=== PATIENT | male | born 1960 | race Caucasian/White ===

== ENCOUNTER 2016-12-07 20:47 | Inpatient (IN) | payer BC ==
[~2016-12-07] VITALS: Ht 185.4 cm; Wt 99.7 kg
[2016-12-07 22:36] LABS: HEMATOCRIT ND % (38.0-50.0); IMM.PLATELET FRACTION ND (1-7); MCH ND PG (29.0-34.0); MCHC ND G/DL (30.0-36.0); MCV ND FL (86-99); MEAN PLAT.VOLUME ND uM^3 (9.0-12.4); PLATELET COUNT ND K/uL (156-360); RBC DIS.WIDTH-CV ND % (11.8-14.6); RBC DIS.WIDTH-SD ND % (39-53); RED BLOOD COUNT ND M/uL (4.00-5.50); WHITE BLOOD COUNT ND K/uL (4.1-10.2)
[2016-12-07 22:37] LABS: BASOPHIL COUNT ND K/uL (0-0.1); EOSINOPHIL (%) ND % (0-5); EOSINOPHIL COUNT ND K/uL (0-0.3); IMMATURE GRANULOCYTE (%) ND % (0.0-0.7); LYMPHOCYTE COUNT ND K/uL (1.0-2.8); MONOCYTE (%) ND % (3-12); MONOCYTE COUNT ND K/uL (0-0.8); NEUTROPHIL (%) ND % (45-76); NEUTROPHIL COUNT ND K/uL (1.8-6.4)
[2016-12-07 22:38] LABS: IMMATURE GRANULOCYTE COUNT ND K/uL; NRBC (%) ND /100 WBC (0-0)
[2016-12-07 22:40] LABS: INTER. NORMALIZED RATIO 1.4; PROTHROMBIN TIME 14.1 (9.2-11.2); PTT 23.2 (25-32)
[2016-12-07 22:44] LABS: CHLORIDE 101 mEq/L (99-109)
[2016-12-07 22:45] LABS: POTASSIUM 4.2 mEq/L (3.7-5.4); SODIUM 135 mEq/L (136-147)
[2016-12-07 22:48] LABS: ANION GAP 13 MEQ/L (2-14)
[2016-12-07 22:50] LABS: GFR ESTIMATE (CALCULATED) > 59 mL/min/
[2016-12-07 22:51] LABS: BASOPHIL COUNT 0.1 K/uL (0-0.1); EOSINOPHIL (%) 2.6 % (0-5); EOSINOPHIL COUNT 0.2 K/uL (0-0.3); HEMATOCRIT 40.1 % (38.0-50.0); IMMATURE GRANULOCYTE (%) 0.3 % (0.0-0.7); INSTRUMENT ABS NEUTROPHIL CT 3.5 K/uL; LYMPHOCYTE COUNT 2.2 K/uL (1.0-2.8); MCH 29.6 PG (29.0-34.0); MCHC 35.2 G/DL (30.0-36.0); MCV 84.2 FL (86-99); MEAN PLAT.VOLUME 11.2 uM^3 (9.0-12.4); MONOCYTE (%) 9.3 % (3-12); MONOCYTE COUNT 0.6 K/uL (0-0.8); NEUTROPHIL (%) 53.6 % (45-76); NEUTROPHIL COUNT 3.5 K/uL (1.8-6.4); PLATELET COUNT 175 K/uL (156-360); RBC DIS.WIDTH-CV 12.8 % (11.8-14.6); RBC DIS.WIDTH-SD 39.6 % (39-53); RED BLOOD COUNT 4.76 M/uL (4.00-5.50); WHITE BLOOD COUNT 6.5 K/uL (4.1-10.2)
[2016-12-07 22:51] LABS: UREA NITROGEN (BUN) 21 mg/dL (9-23)
[2016-12-07 22:55] LABS: TROP-I INTERPRETATION NEGATIVE; TROPONIN-I < 0.01 ng/mL (0.0-0.30)
[2016-12-07 23:14] LABS: GLUCOSE 420 mg/dL (70-99)
[2016-12-07] MEDS ORDERED: TOUJEO SOL300 UNIT/1 SC (23:39)
[2016-12-07] MEDS ORDERED: METFORMIN HCL500 M4 PO (23:39)
[2016-12-07] MEDS ORDERED: METFORMIN HCL1000 M3 PO (23:39)
[2016-12-07] MEDS ORDERED: PRINZIDE 20-121 EACH PO (23:40)
[2016-12-07] MEDS ORDERED: TRICOR48 MG PO (23:41)
[2016-12-07] MEDS ORDERED: LIVALO2 MG PO (23:41)
[2016-12-08 00:05] LABS: HDL CHOLESTEROL 30 MG/DL (Desirable>=40); NON-HDL CHOLESTEROL 175 mg/dL (Desirable<160); TOTAL CHOLESTEROL 205 mg/dL (Desirable<200); TRIGLYCERIDES 465 MG/DL (Normal: <150)
[2016-12-08 01:52] LABS: POINT-OF-CARE METER ID UU13113702
[2016-12-08 02:38] LABS: POINT-OF-CARE METER ID UU13113702
[2016-12-08 07:36] LABS: Estimated Average Glucose 269 mg/dL (70-123)
[2016-12-08 08:32] LABS: HEMATOCRIT 40.7 % (38.0-50.0); MCH 29.3 PG (29.0-34.0); MCHC 34.6 G/DL (30.0-36.0); MCV 84.6 FL (86-99); PLATELET COUNT 156 K/uL (156-360); RBC DIS.WIDTH-CV 13.1 % (11.8-14.6); RBC DIS.WIDTH-SD 40.3 % (39-53); RED BLOOD COUNT 4.81 M/uL (4.00-5.50); WHITE BLOOD COUNT 6.4 K/uL (4.1-10.2)
[2016-12-08 09:18] LABS: ALKALINE PHOSPHATASE 57 IU/L (3-129); ANION GAP 10 MEQ/L (2-14); CHLORIDE 105 MEQ/L (99-109); GFR ESTIMATE (CALCULATED) > 59 mL/min/; GLUCOSE 226 mg/dL (70-99); POTASSIUM 3.5 MEQ/L (3.7-5.4); SAMPLE HEMOLYSIS CHECK 0; SAMPLE ICTERIC CHECK 0; SAMPLE LIPEMIA CHECK 0; SODIUM 138 MEQ/L (136-147); TOTAL BILIRUBIN 1.2 MG/DL (0.0-1.0); UREA NITROGEN (BUN) 15 mg/dL (9-23)
[2016-12-08 11:01] VITALS: BP 127/72
[2016-12-08 14:50] LABS: AMPHETAMINES QUANT VALUE 0 NG/ML; BARBITUATES QUANT VALUE 0 NG/ML; BENZODIAZEPINES QUANT VALUE 0 NG/ML; BENZODIAZEPINES, URINE SCREEN Negative (200 ng/mL); MARIJUANA QUANT VALUE 0 NG/ML; OPIATES QUANTITATIVE VALUE 0 NG/ML; PHENCYCLIDINE QUANT VALUE 0 NG/ML
[2016-12-08 15:00] VITALS: BP 144/76
[2016-12-08] MEDS ORDERED: OMEPRAZOLE40 M1 PO (15:12)
[2016-12-08 18:37] LABS: TROP-I INTERPRETATION NEGATIVE; TROPONIN-I < 0.01 ng/mL (0.0-0.30)
[2016-12-08 19:38] VITALS: BP 144/77
[2016-12-08 23:08] LABS: TROP-I INTERPRETATION NEGATIVE; TROPONIN-I < 0.01 ng/mL (0.0-0.30)
[2016-12-08 23:54] VITALS: BP 137/82
[2016-12-09 03:19] VITALS: BP 116/64
[2016-12-09 05:51] LABS: HEMATOCRIT 42.7 % (38.0-50.0); MCH 29.2 PG (29.0-34.0); MCHC 34.9 G/DL (30.0-36.0); MCV 83.6 FL (86-99); MEAN PLAT.VOLUME 11.5 uM^3 (9.0-12.4); PLATELET COUNT 189 K/uL (156-360); RBC DIS.WIDTH-CV 12.8 % (11.8-14.6); RBC DIS.WIDTH-SD 38.6 % (39-53); RED BLOOD COUNT 5.11 M/uL (4.00-5.50); WHITE BLOOD COUNT 6.9 K/uL (4.1-10.2)
[2016-12-09 07:33] VITALS: BP 130/72
[2016-12-09] MEDS ORDERED: Vitamin B-12 SL (10:43)
[2016-12-09] MEDS ORDERED: ASPIR-LOW81 MG PO (10:43)
== END 2016-12-09 12:44 | disposition home or self-care (01) | DRG 66 ==
LOC: EME 20:47 → 5SOUTH 12-08 04:01 → EDOF 12-08 04:01 → 5SOUTH 12-08 05:09
PROVIDERS: Emergency Medicine; Hospitalist
DX: I63.9 Cerebral infarction, unspecified (principal); E11.65 Type 2 diabetes mellitus with hyperglycemia; E78.5 Hyperlipidemia, unspecified; E78.00 Pure hypercholesterolemia, unspecified; I10 Essential (primary) hypertension; I73.9 Peripheral vascular disease, unspecified; F17.210 Nicotine dependence, cigarettes, uncomplicated; F03.90 Unspecified dementia, unspecified severity, without behavioral disturbance, psychotic disturbance, mood disturbance, and anxiety; E53.9 Vitamin B deficiency, unspecified; Z79.4 Long term (current) use of insulin
CPT/HCPCS: 70450; 70496; 70498; 70551; 80048; 80053; 80061; 80306 90; 82607; 82746; 82948; 83036; 84484; 85025; 85025 91; 85027; 85610; 85730; 93005; 93306; 99281; 99285; J1815; J7030